=== PATIENT | male | born 1940 | race Caucasian/White ===

== ENCOUNTER 2020-11-06 12:34 | Inpatient (IN) | payer MEDICARE, OTHER ==
[~2020-11-06] VITALS: Ht 182.9 cm; Wt 104.0 kg
[~2020-11-06 12:34] MED LIST: ACHD5005 PO; ALLO100T PO; CALC-913 PO; CLIN300C12 PO; CYCL5TAB PO; DOXY100C42 PO; ENAL20TA16 PO; METO-351 PO; MULT-1029 PO; NAPR220C11 PO; RANI-603 PO; RANI-613 PO; SULF-222 PO; UBID10CA5 PO
--- NOTE | 2020-11-06 14:45 | NUR ---
FREDDY HARRELL admitted to room 507-1, with an admitting diagnosis of COVID, on 11/06/20 from via direct admit, accompanied by and daugher.FREDDY HARRELL introduced to surroundings, call light, bed controls, phone, TV, temperature control, lights, meal times, smoking policy, visitor policy, side rail policy, bathrooms and showers. Patient Rights given to patient in the handbook. FREDDY HARRELL verbalizes understanding that [facility] is not responsible for the loss or damage to any personal effects or valuables that are kept in the patients posession during their hospitalization. FREDDY HARRELL verbalizes understanding of Interdisciplinary Patient Education. Patient informed about the Rapid Response Team and its purpose.
[2020-11-06] MEDS ORDERED: ACETAMINOPHEN 325 MG TABLET PO PRN (15:00)
[2020-11-06] MEDS ORDERED: AZITHROMYCIN INJECTION 500 MG in NS (IVPB) 250 ML IV NR (15:00)
[2020-11-06] MEDS ORDERED: ONDANSETRON 4 MG/2 ML (SDV) Z0FRAN IVP PRN (15:00)
[2020-11-06] MEDS ORDERED: FAMOTIDINE 20 MG (PEPCID) TABLET PO PRN (15:15)
[2020-11-06] MEDS ORDERED: REMDESIVIR INJ 200 MG in NS (IVPB) 210 ML IV ONE (15:15)
[2020-11-06] MEDS ORDERED: cefTRIAXone 1,000 MG IV (ROCEPHIN) VIAL ONE (15:21)
[2020-11-06] MEDS ORDERED: ENOXAPARIN 40 MG/0.4 ML (LOVENOX) SYR ONE (15:21)
[2020-11-06] MEDS ORDERED: WATER (STERILE) FOR INJECTION 10 ML ONE (15:21)
[2020-11-06] MEDS: ENOXAPARIN 40 MG/0.4 ML (LOVENOX) SYR SC SCH (15:26)
[2020-11-06] MEDS: cefTRIAXone FOR IV USE 1,000 MG in WATER (STERILE) FOR INJECTION 10 ML IV SCH (15:26)
[2020-11-06] MEDS ORDERED: CATHETER FLUSH 10 ML SYR IV PRN (15:45)
[2020-11-06 15:53] LABS: BASOPHILS % (AUTO) 0 % (0-10); EOSINOPHILS % (AUTO) 0 % (0-10); HEMATOCRIT 36 % (40-54); HEMOGLOBIN 11.9 g/dL (13.3-17.7); LYMPHOCYTES # (AUTO) 0.6 10^3/uL (1.0-4.0); LYMPHOCYTES % (AUTO) 13 % (12-44); MEAN CORPUSCULAR HEMOGLOBIN 32 pg (25-34); MEAN CORPUSCULAR HGB CONC 33 g/dL (32-36); MEAN CORPUSCULAR VOLUME 98 fL (80-99); MEAN PLATELET VOLUME 9.8 fL (9.0-12.2); MONOCYTES # (AUTO) 0.4 10^3/uL (0.0-1.0); MONOCYTES % (AUTO) 8 % (0-12); NEUTROPHILS # (AUTO) 3.6 10^3/uL (1.8-7.8); NEUTROPHILS % (AUTO) 79 % (42-75); PLATELET COUNT 153 10^3/uL (130-400); WHITE BLOOD COUNT 4.6 10^3/uL (4.3-11.0)
[2020-11-06] MEDS ORDERED: VITA10007 PO (15:53)
[2020-11-06] MEDS ORDERED: ALLO300T2 PO (15:53)
[2020-11-06] MEDS ORDERED: TMSL.4C PO (15:53)
[2020-11-06] MEDS ORDERED: CALC-901 PO (15:53)
[2020-11-06] MEDS ORDERED: ACET-2267 PO (15:53)
[2020-11-06] MEDS ORDERED: ATOR40TA70 PO (15:53)
[2020-11-06] MEDS ORDERED: MAGN250T13 PO (15:53)
[2020-11-06] MEDS ORDERED: METF-397 PO (15:53)
[2020-11-06] MEDS ORDERED: ASCO-262 PO (15:53)
[2020-11-06] MEDS ORDERED: FINA5TAB6 PO (15:53)
[2020-11-06] MEDS ORDERED: FLUT9.9S NS (15:53)
[2020-11-06] MEDS ORDERED: MTP25TSR PO (15:53)
--- NOTE | 2020-11-06 15:56 | NUR ---
SPOKE WITH THE PT (CALLED ROOM PHONE), CALLED HIS (NANCY) AND WENT THRU THE EXT MED HISTORY TO COMPLETE THE MED REC PT WAS NOT ABLE TO GIVE ME INFORMATION ABOUT HIS MEDS AND WANTED ME TO CALL NANCY. I CALLED NANCY AND SHE WENT OVER ALL THE PTS MEDICATIONS.ALL INFORMATION SHE PROVIDED MATCHED THE EXT MED HISTORY OTC MEDS: CALCIUM W/ VIT D VIT E VIT C MAGNESIUM TYLENOL FLONASE NANCY ALSO WANTED ME TO KNOW THAT [facility] TAKES TONIC WATER AT BEDTIME FOR LEG CRAMPS
[2020-11-06 16:10] LABS: ALBUMIN 3.8 GM/DL (3.2-4.5); POTASSIUM 4.8 MMOL/L (3.6-5.0)
[2020-11-06 16:11] LABS: CALCIUM 8.4 MG/DL (8.5-10.1)
[2020-11-06 16:12] LABS: TOTAL PROTEIN 6.6 GM/DL (6.4-8.2)
[2020-11-06 16:14] LABS: BILIRUBIN,TOTAL 0.5 MG/DL (0.1-1.0)
[2020-11-06 16:16] LABS: CREATININE SERUM 1.47 MG/DL (0.60-1.30); PHOSPHORUS 3.7 MG/DL (2.3-4.7)
[2020-11-06 16:19] LABS: MAGNESIUM 2.1 MG/DL (1.6-2.4)
[2020-11-06 17:16] LABS: ABG BASE EXCESS -4.8 MMOL/L (-2.5-2.5); ABG OXYGEN SATURATION 95 % (94-100); ABG PCO2 33 MMHG (35-45); ABG PH 7.39 (7.37-7.43); ABG PO2 80 MMHG (79-93); ABG TCO2 20.3 MMOL/L (21.0-31.0)
[2020-11-06] MEDS: RT-ALBUTEROL INHALER HFA (VENTOLIN HFA) 18 GM IH SCH ×2 (17:16→18:20)
[2020-11-06 17:17] LABS: ALLENS TEST YES-POS; INSPIRED O2 RA; PATIENT TEMP 37; VENTILATOR NO
[2020-11-06 17:32] LABS: BILIRUBIN,URINE NEGATIVE (NEGATIVE); CLARITY,URINE CLEAR; COLOR,URINE YELLOW; GLUCOSE, URINE (UA) NEGATIVE (NEGATIVE); KETONES,URINE NEGATIVE (NEGATIVE); LEUKOCYTE ESTERASE ,URINE NEGATIVE (NEGATIVE); NITRITE,URINE NEGATIVE (NEGATIVE); PH,URINE 5.5 (5-9); PROTEIN,URINE NEGATIVE (NEGATIVE)
--- NOTE | 2020-11-06 17:34 | Diagnostic Imaging Report ---
INDICATION: Shortness of breath, COVID positive Frontal chest obtained at 0509 p.m. and compared to 07/20/2016. Heart and mediastinal silhouette are normal in appearance. The lungs are clear. There is no pneumothorax or pleural fluid. IMPRESSION: Negative chest. Dictated by: Dictated on workstation # [id number]
[2020-11-06] MEDS: LACTATED RINGERS 1,000 ML IV SCH (18:01)
[2020-11-06 18:05] LABS: AMORPHOUS SEDIMENT,UR FEW AMOR URATES /LPF; BACTERIA,URINE TRACE /HPF; SQUAMOUS EPITHELIAL CELL,UR 0-2 /HPF
[2020-11-06] MEDS: ADVAIR HFA 115/21 MCG INHALER 8 GM IH SCH (18:21)
[2020-11-06] MEDS: meTOprolol TARTRATE 25 MG (LOPRESSOR) TABLET PO SCH (21:18)
[2020-11-06] MEDS: CATHETER FLUSH 10 ML SYR IV SCH (21:43)
[2020-11-07] MEDS: LACTATED RINGERS 1,000 ML IV SCH ×3 (02:54→14:50)
[2020-11-07 06:04] LABS: BASOPHILS % (AUTO) 0 % (0-10); EOSINOPHILS % (AUTO) 0 % (0-10); HEMATOCRIT 27 % (40-54); HEMOGLOBIN 8.9 g/dL (13.3-17.7); LYMPHOCYTES # (AUTO) 0.6 10^3/uL (1.0-4.0); LYMPHOCYTES % (AUTO) 21 % (12-44); MEAN CORPUSCULAR HGB CONC 33 g/dL (32-36); MEAN CORPUSCULAR VOLUME 99 fL (80-99); MEAN PLATELET VOLUME 9.9 fL (9.0-12.2); MONOCYTES # (AUTO) 0.3 10^3/uL (0.0-1.0); MONOCYTES % (AUTO) 12 % (0-12); NEUTROPHILS # (AUTO) 1.8 10^3/uL (1.8-7.8); NEUTROPHILS % (AUTO) 67 % (42-75); PLATELET COUNT 123 10^3/uL (130-400); WHITE BLOOD COUNT 2.7 10^3/uL (4.3-11.0)
[2020-11-07 06:05] LABS: MEAN CORPUSCULAR HEMOGLOBIN 32 pg (25-34)
[2020-11-07] MEDS: CATHETER FLUSH 10 ML SYR IV SCH ×3 (06:18→20:33)
--- NOTE | 2020-11-07 06:23 | Pulmonary Consultation ---
History of Present Illness History of Present Illness Date Seen by Provider: Nov 07, 2020 Time Seen by Provider: 06:18 Date of Admission History of Present Illness 80yo admited secondary to worsening SOB secondary to COVID dx on 11/06. Pt was a direct admit.Pt also complains of fever and worsening weakness. SOB is worse with exertion. No productive cough. No CP, no abdominal pain. No hx like this in the past. Allergies and Home Medications Allergies Coded Allergies: No Known Drug Allergies (Unverified , 08/06/15) Home Medications Acetaminophen 500 Mg Tablet, 500-1,000 MG PO Q6H PRN for PAIN-MILD (1-4) OR TEMPATURE, (Reported) Allopurinol 300 Mg Tablet, 300 MG PO DAILY, (Reported) Ascorbate Calcium 500 Mg Tablet, 500 MG PO DAILY, (Reported) Atorvastatin Calcium 40 Mg Tablet, 40 MG PO HS, (Reported) Calcium Carbonate/Vitamin D3 1 Each Tablet, 1 EACH PO DAILY, (Reported) Enalapril Maleate 20 Mg Tablet, 20 MG PO DAILY, (Reported) Finasteride 5 Mg Tablet, 5 MG PO DAILY, (Reported) Fluticasone Propionate 9.9 Ml [place].susp, 1 SPRAY NS BID, (Reported) Magnesium Oxide 250 Mg Tablet, 250 MG PO HS, (Reported) Metformin HCl 500 Mg Tablet, 500 MG PO BID, (Reported) Metoprolol Succinate 25 Mg Tab.er.24h, 25 MG PO HS, (Reported) Tamsulosin HCl 0.4 Mg Cap, 0.4 MG PO HS, (Reported) Vitamin E 1,000 Unit Capsule, 1,000 UNIT PO HS, (Reported) Past Snhvaam-Xqrhdf-Vrdtoq Hx Patient Social History Smoking Status: Never a Smoker Recent Hopitalizations: No Have you traveled recently?: No Immunizations Up To Date Tetanus Booster (TDap): Unknown Seasonal Allergies Seasonal Allergies: No Past Medical History Orthopedic Hypertension, Irregular Heartbeat Reproductive Disorders: No Gastroesophageal Reflux Gout Adverse Reaction/Blood Tranf: No Family Medical History Cardiovascular disease 19 FATHER Completed stroke 19 FATHER Hypertension 19 FATHER No Pertinent Family Hx Review of Systems Time Seen by Provider: 16:21 Sepsis Event Evaluation Height, Weight, BMI Height: 6'0.00" Weight: 230lbs. 6.0oz. 104.943138ro; 33.00 BMI Method:Stated Exam Exam Vital Signs Date Time Temp Pulse Resp B/P (MAP) Pulse Ox O2 Delivery O2 Flow Rate FiO2 11/07/20 04:35 36.7 81 19 138/71 (93) 92 Room Air 11/07/20 00:36 87 11/06/20 23:23 37.3 83 19 138/74 (95) 98 Room Air 11/06/20 21:43 Room Air 11/06/20 19:11 37.1 92 23 165/79 (107) 100 Room Air 11/06/20 19:00 91 11/06/20 18:24 94 Room Air 21 11/06/20 18:21 94 Room Air 21 11/06/20 17:26 95 Room Air 11/06/20 15:47 98 Room Air 11/06/20 15:15 36.4 74 14 121/69 (86) 96 Room Air 11/06/20 15:08 66 11/06/20 14:34 74 16 154/70 (98) 96 Room Air I & O 11/07/20 07:00 Intake Total 1950 ml Output Total 850 ml Balance 1100 ml Height & Weight Height: 6'0.00" Weight: 230lbs. 6.0oz. 104.800619hw; 33.00 BMI Method:Stated General Appearance: Anxious, Moderate Distress HEENT: PERRL/EOMI, Pharynx Normal Neck: Full Range of Motion, Non Tender, Supple Respiratory: Accessory Muscle Use, Crackles, Decreased Breath Sounds Cardiovascular: Regular Rate, Rhythm Capillary Refill: Less Than 3 Seconds Gastrointestinal: normal bowel sounds, non tender, soft Extremity: Normal Capillary Refill, Normal Inspection Neurologic/Psychiatric: Alert Skin: Normal Color, Warm/Dry Lymphatic: No Adenopathy Results Lab Laboratory Tests 11/06/20 15:35 11/07/20 05:18 Assessment/Plan Assessment/Plan COVID 19 -Symptoms started on 10/29 -Currently on RA -Remdesivir -CVP -Decadron Anemia -Check occult stool -Monitor Dehydration with ARF -IVF - currently at 125 -Monitor DVT/PPX -Lovenox -PRADEEP Shepard DO Nov 07, 2020 06:23
[2020-11-07 06:28] LABS: CHLORIDE 104 MMOL/L (98-107)
[2020-11-07 06:29] LABS: POTASSIUM 4.2 MMOL/L (3.6-5.0); SODIUM 131 MMOL/L (135-145)
[2020-11-07 06:30] LABS: CALCIUM 7.2 MG/DL (8.5-10.1); GLUCOSE 89 MG/DL (70-105)
[2020-11-07 06:32] LABS: CARBON DIOXIDE 14 MMOL/L (21-32)
[2020-11-07 06:34] LABS: CREATININE SERUM 0.91 MG/DL (0.60-1.30); GFR ESTIMATED > 60; PHOSPHORUS 2.5 MG/DL (2.3-4.7)
[2020-11-07 06:35] LABS: BUN/CREATININE RATIO 30
[2020-11-07 06:37] LABS: MAGNESIUM 1.6 MG/DL (1.6-2.4)
[2020-11-07] MEDS: ADVAIR HFA 115/21 MCG INHALER 8 GM IH SCH ×2 (07:18→19:20)
[2020-11-07] MEDS: RT-ALBUTEROL INHALER HFA (VENTOLIN HFA) 18 GM IH SCH ×4 (07:18→19:20)
--- NOTE | 2020-11-07 07:36 | Diagnostic Imaging Report ---
CHEST 1 VIEW, AP/PA ONLY Indication: Shortness of breath Comparison: 11/06/2020 Findings: Low lung volumes with increased basilar linear opacities likely due to atelectasis. No pleural effusion or pneumothorax. Normal cardiomediastinal silhouette. Impression: 1. Increasing basilar subsegmental atelectasis likely due to suboptimal inspiration. Dictated by: Dictated on workstation # [id number]
[2020-11-07] MEDS: meTOprolol TARTRATE 25 MG (LOPRESSOR) TABLET PO SCH ×2 (07:57→20:24)
[2020-11-07] MEDS: AZITHROMYCIN INJECTION 250 MG in NS (IVPB) 250 ML IV SCH (08:43)
[2020-11-07] MEDS ORDERED: NS IV 500 ML 500 ML ONE (13:15)
[2020-11-07 13:48] VITALS: BP 127/72
[2020-11-07 14:03] VITALS: BP 118/66
[2020-11-07 14:33] VITALS: BP 119/73
[2020-11-07] MEDS: ENOXAPARIN 40 MG/0.4 ML (LOVENOX) SYR SC SCH (14:49)
[2020-11-07] MEDS: cefTRIAXone FOR IV USE 1,000 MG in WATER (STERILE) FOR INJECTION 10 ML IV SCH (14:49)
[2020-11-07] MEDS ORDERED: REMDESIVIR INJ 100 MG in NS (IVPB) 230 ML IV SCH (15:00)
--- NOTE | 2020-11-07 15:19 | NUR ---
"RD ASSESSMENT PMHx: HTN; GERD; gout; PT INTERACTION: Received dietary consult for MST score. Note pt is currently in COVID isolation, per chart review. Note all diet information for nutrition assessment is per Mallorie RN, or per chart review. Mallorie states current appetite appears alright. Note avg PO intake 50% x3meal, per chart review. Mallorie states no issues with nausea, vomiting, constipation, or diarrhea that she is aware of, and that his last BM was 11/07. Note pt not currently on bowel regimen per chart review. Note unable to determine recent wt hx, per chart review. Note unable to complete visual assessment d/t isolation precautions. Note BMI of 33.7 (Obese class I for age). Given PO intake, wt hx, and visual assessment, it is difficult to determine if pt meets criteria for malnutrition per ASPEN guidelines. Note abnormal lab values of Na 131 L, BUN 27 H, and Ca 7.2 L, per chart review. Est. kcal needs: 6432-0512 kcal | 15-18 kcal/kg Est. Pro needs: 90-113 g Pro | 0.8-1.0 g Pro/kg PES STATEMENT: Inadequate oral intake (NI-2.1) related to loss of appetite as evidenced by chart review, communication with RN, and avg PO intake 50% x3meal. INTERVENTION: Continue with current diet order of CHO 75g/m 1snack diet. Pt may benefit from nutrition supplementation if PO intake declines. Will continue to follow and reassess as pt needs, intake, and status change. Jazmín WERNER, MS RD LD [phone] cell"
[2020-11-08] MEDS: LACTATED RINGERS 1,000 ML IV SCH ×2 (01:43→08:25)
[2020-11-08] MEDS: RT-ALBUTEROL INHALER HFA (VENTOLIN HFA) 18 GM IH SCH ×2 (02:05→10:20)
[2020-11-08 03:46] LABS: BASOPHILS % (AUTO) 0 % (0-10); EOSINOPHILS % (AUTO) 0 % (0-10); HEMATOCRIT 33 % (40-54); HEMOGLOBIN 11.1 g/dL (13.3-17.7); LYMPHOCYTES # (AUTO) 0.6 10^3/uL (1.0-4.0); LYMPHOCYTES % (AUTO) 15 % (12-44); MEAN CORPUSCULAR HEMOGLOBIN 32 pg (25-34); MEAN CORPUSCULAR HGB CONC 33 g/dL (32-36); MEAN CORPUSCULAR VOLUME 96 fL (80-99); MEAN PLATELET VOLUME 9.6 fL (9.0-12.2); MONOCYTES # (AUTO) 0.3 10^3/uL (0.0-1.0); MONOCYTES % (AUTO) 9 % (0-12); NEUTROPHILS # (AUTO) 2.9 10^3/uL (1.8-7.8); NEUTROPHILS % (AUTO) 76 % (42-75); PLATELET COUNT 167 10^3/uL (130-400); WHITE BLOOD COUNT 3.8 10^3/uL (4.3-11.0)
[2020-11-08 04:10] LABS: CHLORIDE 108 MMOL/L (98-107); POTASSIUM 4.3 MMOL/L (3.6-5.0); SODIUM 136 MMOL/L (135-145)
[2020-11-08 04:11] LABS: CALCIUM 7.9 MG/DL (8.5-10.1)
[2020-11-08 04:12] LABS: GLUCOSE 164 MG/DL (70-105)
[2020-11-08 04:13] LABS: CARBON DIOXIDE 16 MMOL/L (21-32)
[2020-11-08 04:15] LABS: PHOSPHORUS 2.9 MG/DL (2.3-4.7)
[2020-11-08 04:16] LABS: BUN/CREATININE RATIO 28; CREATININE SERUM 1.05 MG/DL (0.60-1.30); GFR ESTIMATED > 60
[2020-11-08] MEDS: CATHETER FLUSH 10 ML SYR IV SCH (05:42)
--- NOTE | 2020-11-08 06:12 | Pulmonary Progress Note ---
Subjective Time Seen by a Provider: 06:07 Subjective/Events-last exam Pt is doing better and still not requiring oxygen. Sepsis Event Evaluation Height, Weight, BMI Height: 6'0.00" Weight: 230lbs. 6.0oz. 104.649194kd; 33.00 BMI Method:Stated Focused Exam Lactate Level 11/06/20 15:35: Lactic Acid Level 1.54 11/07/20 10:50: Lactic Acid Level 0.90 Exam Exam Vital Signs Date Time Temp Pulse Resp B/P (MAP) Pulse Ox O2 Delivery O2 Flow Rate FiO2 11/08/20 04:00 36.0 49 18 148/85 (106) 95 Room Air 11/08/20 02:05 98 Room Air 21 11/08/20 00:30 52 11/07/20 22:58 36.0 67 17 150/71 (97) 96 Room Air 11/07/20 21:00 Room Air 11/07/20 19:21 97 Room Air 21 11/07/20 19:00 77 11/07/20 18:54 36.7 75 16 129/73 (91) 98 Room Air 11/07/20 16:05 36.3 57 16 135/70 (91) 96 Room Air 11/07/20 15:17 36.2 11/07/20 14:48 97 Room Air 21 11/07/20 14:33 36.0 49 11/07/20 14:03 36.2 58 11/07/20 13:48 36.0 56 11/07/20 13:34 36.2 11/07/20 13:21 54 11/07/20 12:00 35.7 72 14 112/57 (75) 96 Room Air 11/07/20 11:58 95 Room Air 11/07/20 09:00 Room Air 11/07/20 08:00 76 18 124/98 (107) 93 Room Air 11/07/20 07:21 91 Room Air 21 11/07/20 07:20 91 Room Air 21 11/07/20 06:27 75 I & O 11/08/20 07:00 Intake Total 2056 ml Output Total 1750 ml Balance 306 ml Height & Weight Height: 6'0.00" Weight: 230lbs. 6.0oz. 104.165846jd; 33.00 BMI Method:Stated General Appearance: Anxious, Chronically ill, Mild Distress HEENT: PERRL/EOMI, Pharynx Normal Neck: Full Range of Motion, Non Tender, Supple Respiratory: No Accessory Muscle Use, No Respiratory Distress, Crackles, Decreased Breath Sounds Cardiovascular: Regular Rate, Rhythm, No JVD, No Murmur Capillary Refill: Less Than 3 Seconds Gastrointestinal: normal bowel sounds, non tender, soft Extremity: Normal Capillary Refill, Normal Inspection, Non Tender Neurologic/Psychiatric: Alert Skin: Normal Color, Warm/Dry Lymphatic: No Adenopathy Results Lab Laboratory Tests 11/06/20 15:35 11/07/20 05:18 11/08/20 03:30 11/08/20 03:33 Assessment/Plan Assessment/Plan COVID 19 -Symptoms started on 10/29 -Currently on RA -Remdesivir -s/p CVP -Decadron Anemia -Check occult stool -Monitor Dehydration with ARF -- Resolved -IVF - currently at 125 -Monitor DVT/PPX -Lovenox -Pepcid Will discharge pt home this morning. No abx or steroids needed. PRADEEP MCDONOUGH DO Nov 08, 2020 06:12
--- NOTE | 2020-11-08 07:53 | Diagnostic Imaging Report ---
Indication: Short of air Upright portable chest shows normal heart size and vascularity. The lungs are clear. There is no effusion or pneumothorax. There is no acute bony abnormality. There is no significant change from 11/07/2020. IMPRESSION: Stable chest. Dictated by: Dictated on workstation # [id number]
[2020-11-08] MEDS: meTOprolol TARTRATE 25 MG (LOPRESSOR) TABLET PO SCH (08:24)
[2020-11-08] MEDS: AZITHROMYCIN INJECTION 250 MG in NS (IVPB) 250 ML IV SCH (08:25)
[2020-11-08] MEDS: ADVAIR HFA 115/21 MCG INHALER 8 GM IH SCH (10:20)
--- NOTE | 2020-11-08 15:49 | Physician Query Clarification ---
"Physician Query-General Query to Physician: The medical record reflects the following clinical scenario: History/Risk factors: on tahir inhibitor (enalapril), Dehydration Clinical Findings: Na Decreased to 131 and increased back to 136 Treatment: IVFs - LR, Daily monitoring of NA Question: What condition best reflects the above clinical scenario? Please document response in the Progress notes or Discharge Summary. 1. Hyponatremia possibly due to dehydration 2. Dehydration (as currently documented) 3. Other , with explanation of the clinical findings 4. Clinically undetermined, no explanation for the clinical findings Please remember a lack of response to the above will prompt a phone page by CDI/coding staff In responding to this query, please exercise your independent professional judgment. The purpose of this communication is to more accurately reflect the complexity of your patients condition. The fact that a question is asked does not imply that any particular answer is desired or expected. Thank you for timely response to this clarification. Veronica Carrion, MSN, RN RN Specialist-Clinical Doc Improvement CD -Health Info Mgmt Operations [address] [facility] t: [phone] | f: [phone] If you are unable to reach me at my extension, I may be working from home. Please contact me at [phone] PHYSICIAN RESPONSE: Based on the clinical findings in the record, please respond to the query above on this document as an addendum. Physician Response: Physician Response 3 If you have questions please contact: Departmental Shipping Clerk: Ext: Thank you for your time and cooperation. Clinical Steno Pool Supervisor/Departmental Shipping Clerk This is a permanent part of the medical record VERONICA CARRION Nov 08, 2020 15:49 PRADEEP MCDONOUGH DO Nov 22, 2020 16:04"
--- NOTE | 2020-11-08 15:51 | Physician Query Clarification ---
"Physician Query-General Query to Physician: The medical record reflects the following clinical scenario: History/Risk factors: dehydration, Decreased oral intake Clinical Findings: Admission CR 1.47 Decreased to 0.91 after fluids Treatment: IVFs, Lab monitoring Question: Can you further specify ARF per the clinical indicators above? Please document response in the Progress Notes or Discharge Summary. 1. Dehydration with Acute Renal Failure 2. Dehydration with ARF (as currently documented) 3. Other , with explanation of the clinical findings 4. Clinically undetermined, no explanation for the clinical findings Please remember a lack of response to the above will prompt a phone page by CDI/coding staff In responding to this query, please exercise your independent professional judgment. The purpose of this communication is to more accurately reflect the complexity of your patients condition. The fact that a question is asked does not imply that any particular answer is desired or expected. Thank you for timely response to this clarification. Veronica Clayton, MSN, RN RN Specialist-Clinical Doc Improvement CD -Health Info Mgmt Operations [address] [facility] t: [phone] | f: [phone] If you are unable to reach me at my extension, I may be working from home. Please contact me at [phone] PHYSICIAN RESPONSE: Based on the clinical findings in the record, please respond to the query above on this document as an addendum. Physician Response: Physician Response Please send to Dr Reno who saw patient. If you have questions please contact: Cardiovascular Or Nurse: Ext: Thank you for your time and cooperation. Clinical Rn Hedis/Cardiovascular Or Nurse This is a permanent part of the medical record VERONICA CLAYTON Nov 08, 2020 15:51 ORAL RODRIGES MD Nov 08, 2020 19:28"
--- NOTE | 2020-11-28 10:15 | Discharge Summary ---
Diagnosis/Chief Complaint Date of Admission Nov 06, 2020 at 14:28 Date of Discharge Nov 08, 2020 at 10:57 Discharge Diagnosis COVID 19 -Symptoms started on 10/29 -Currently on RA -Remdesivir -s/p CVP -Decadron Anemia -Check occult stool -Monitor Dehydration with ARF -- Resolved -IVF - currently at 125 -Monitor DVT/PPX -Lovenox -Pepcid discharged pt home No abx or steroids needed. Discharge Summary Hospital Course Hospital Course 80yo admited secondary to worsening SOB secondary to COVID dx on 11/06. Pt was a direct admit.Pt also complains of fever and worsening weakness. SOB is worse with exertion. No productive cough. No CP, no abdominal pain. No hx like this in the past. Procedures None. Discharge Physical Examination Allergies: Coded Allergies: No Known Drug Allergies (Unverified , 08/06/15) Discharge Home Medications Reviewed and agree with Discharge Medication list on patient's Discharge Instruction sheet Instructions to Patient/Family Please see electronic discharge instructions given to patient. PRADEEP MCDONOUGH DO Nov 28, 2020 10:15
== END 2020-11-08 10:57 | disposition home or self-care (01) | DRG 178 ==
LOC: CSD 14:28
PROVIDERS: ADMIT Family Medicine; ATTEND Family Medicine
PROC: XW033E5 Introduction of Remdesivir Anti-infective into Peripheral Vein, Percutaneous Approach, New Technology Group 5 (ICD-10-PCS; principal; 2020-11-06)
PROC: XW13325 Transfusion of Convalescent Plasma (Nonautologous) into Peripheral Vein, Percutaneous Approach, New Technology Group 5 (ICD-10-PCS; 2020-11-07)
DX: U07.1 COVID-19 (principal); N17.9 Acute kidney failure, unspecified; E86.0 Dehydration; I10 Essential (primary) hypertension; D64.9 Anemia, unspecified; K21.9 Gastro-esophageal reflux disease without esophagitis; M10.9 Gout, unspecified; Z79.84 Long term (current) use of oral hypoglycemic drugs; Z82.49 Family history of ischemic heart disease and other diseases of the circulatory system; Z73.0 Burn-out
CPT/HCPCS: 36415; 36600; 71045; 80048; 80053; 81000; 82274; 82728; 82805; 83605; 83735; 83880; 84100; 84145; 84484; 85025; 85379; 86900; 86901; 87081; 87804; 94640; 94664; 94760